=== PATIENT | male | born 1960 | race Caucasian/White ===

== ENCOUNTER 2022-09-22 08:39 | Outpatient (REF) | payer OTHER, SELFPAY ==
--- NOTE | ~2022-09-22 | XR_ITS ---
EXAMINATION: XR FOOT, RIGHT CLINICAL INFORMATION: Right foot pain for 2 weeks, has improved. Diabetic, second and third and fourth toe were painful and purple. Patient unable to recall injury. COMPARISON: None available. TECHNIQUE: AP, 2 lateral, and oblique views of the right foot. FINDINGS: Dorsal and plantar calcaneal spur formation. Hypertrophic change at the dorsal aspect of the midfoot. The bones appear demineralized. Mild spurring along the medial aspect of the partially imaged distal tibia. Moderate degenerative changes first metatarsophalangeal joint with joint space narrowing and hypertrophic change. XR/XR foot RT min 3V IMPRESSION: Moderate degenerative changes as detailed above. Recommend follow-up imaging in 10-14 days if fracture is suspected.
== END 2022-09-22 08:40 | disposition home or self-care (01) ==
LOC: HO.HHCX 08:39
PROVIDERS: Visit Provider Student in an Organized Health Care Education/Training Program
DX: M79.671 Pain in right foot (principal)
CPT/HCPCS: 73630

== ENCOUNTER 2022-09-22 10:15 | Outpatient (REF) | payer OTHER, SELFPAY ==
--- NOTE | ~2022-09-22 | US_ITS ---
EXAMINATION: US LOWER EXTREMITY VENOUS (REFLUX EXAM), RIGHT CLINICAL INDICATION: Varicose veins, pain in the right foot COMPARISON: None. TECHNIQUE: Color flow triplex imaging and compression Doppler was performed to evaluate both the deep and the superficial systems bilaterally. To evaluate the superficial system, the examination was performed in the upright position. Color-flow Doppler ultrasound and compression ultrasound were utilized. In addition, maneuvers were utilized to demonstrate reflux. FINDINGS: 1. DEEP VENOUS ULTRASOUND OF THE RIGHT LOWER EXTREMITY: Common Femoral Vein: Compressible, normal respiratory variation and augmented flow. Femoral Vein: Compressible, normal color flow and augmentation. Popliteal Vein: Compressible, normal augmentation. Deep Reflux: There is no evidence of reflux in the deep system in either the common femoral vein or the popliteal vein. There is no evidence of a Valentine's cyst. 2. SUPERFICIAL ULTRASOUND WITH DOPPLER OF RIGHT LOWER EXTREMITY: GREAT SAPHENOUS VEIN: Saphenofemoral Junction: 0.8 cm; Reflux: 0 ms Proximal Thigh: 0.7 cm; Reflux: 0 ms Mid Thigh: 0.5 cm; Reflux: 0 ms Above Knee: 0.6 cm; Reflux: 0 ms At Knee: 0.5 cm; Reflux: 0 ms Below Knee: 0.5 cm; Reflux: 0 ms Mid Calf: 0.3 cm; Reflux: 0 ms Ankle: 0.3 cm; Reflux: 0 ms DUPLICATED MEDIAL GREAT SAPHENOUS VEIN: Diameter: None imaged Reflux: NA DUPLICATED LATERAL GREAT SAPHENOUS VEIN: Diameter: None imaged Reflux: NA SMALL SAPHENOUS VEIN: Proximal: 0.3 cm; Reflux: 0 ms Distal: 0.2 cm; Reflux: 0 ms VEIN OF GIACOMINI: Size: NA Reflux: NA PERFORATORS: Location: Multiple calf perforators Size: 0.3 cm Reflux: NA VARICOSITIES: Location: Lateral mid calf Size: 0.3 cm Reflux: 2096ms US/US venous duplex LE RT IMPRESSION: Right: No venous reflux in the superficial or deep venous systems. There is venous reflux within the lateral mid calf varicose vein.
== END 2022-09-22 10:16 | disposition home or self-care (01) ==
LOC: HO.US 10:15
PROVIDERS: Visit Provider Student in an Organized Health Care Education/Training Program
DX: M79.671 Pain in right foot (principal)
CPT/HCPCS: 93971

== ENCOUNTER 2023-08-27 12:10 | Outpatient (REF) | payer OTHER, SELFPAY ==
[2023-08-27 14:16] LABS: Estimated Average Glucose 100 mg/dL; Hemoglobin A1c % 5.1 % (<6.0)
[2023-08-27 14:26] LABS: Alanine Aminotransferase 74 U/L (0-40); Alkaline Phosphatase 172 U/L (39-117); Anion Gap 20 (12-20); Aspartate Amino Transferase 117 U/L (5-37); Bilirubin Direct 0.3 mg/dL (0.0-0.5); Bilirubin Total 0.7 mg/dL (0.0-1.0); Blood Urea Nitrogen 4 mg/dL (9-16); Calcium 9.1 mg/dL (8.4-10.2); Carbon Dioxide 23 mmol/L (22-29); Chloride 91 mmol/L (96-108); Cholesterol 158 mg/dL (<200); Estimated Glomerular Filt Rate > 60; Glucose Random 134 mg/dL (60-115); HDL Cholesterol 71 mg/dL (>40); LDL Cholesterol Calculated 70 mg/dL (<100); Potassium 3.6 mmol/L (3.3-5.1); Sodium 130 mmol/L (135-145); Total Protein 7.2 g/dL (6.5-8.0); Triglycerides 88 mg/dL (<150)
[2023-08-27 14:35] LABS: Creatinine Urine 53.62 mg/dL; Microalbum/Creatinine Ratio Ur 736.6 ug/mg cr (<30)
== END 2023-08-27 12:11 | disposition home or self-care (01) ==
LOC: HO.CHCLDS 12:10
PROVIDERS: Visit Provider Student in an Organized Health Care Education/Training Program
DX: E11.9 Type 2 diabetes mellitus without complications (principal); E78.00 Pure hypercholesterolemia, unspecified; I10 Essential (primary) hypertension
CPT/HCPCS: 36415; 80048; 80061; 80076; 82043; 82570; 83036

== ENCOUNTER 2023-08-27 13:24 | Outpatient (REF) | payer OTHER, SELFPAY ==
--- NOTE | ~2023-08-27 | XR_ITS ---
EXAMINATION: XR KNEE RIGHT XR KNEE LEFT CLINICAL INFORMATION: Pain after fall one week ago COMPARISON: None TECHNIQUE: Right knee, 2 views Left knee, 2 views FINDINGS: Right knee: Tricompartmental osteophyte formation and mild narrowing of medial tibiofemoral joint space. No fracture, subluxation or joint effusion. A 0.8 cm long focus of calcification seen near site of femoral attachment of the medial collateral ligament probably represents calcium hydroxyapatite deposition. No acute fracture is seen in this region. There appears to be soft tissue swelling in the prepatellar region. Mild scattered atherosclerotic calcification of peripheral vessels. Left knee: Bones have normal alignment. No fracture, subluxation or joint effusion. No arthritic deformity. The calcification in the region of the proximal medial collateral ligament of 2 cm length likely represent calcium hydroxyapatite deposition. There is mild scattered atherosclerotic calcification of peripheral vessels. XR/XR knee LT 2V IMPRESSION: * No acute osseous injury at either knee. * There is asymmetric soft tissue swelling in the prepatellar region of the right knee. Correlate for any posttraumatic bruising after the recent fall. No patellar fracture. * Mild to moderate tricompartmental osteoarthritis of the right knee. * Incidentally noted are foci of calcium deposition (likely calcium hydroxyapatite deposition) at each proximal medial collateral ligament.
--- NOTE | ~2023-08-27 | XR_ITS ---
EXAMINATION: XR KNEE RIGHT XR KNEE LEFT CLINICAL INFORMATION: Pain after fall one week ago COMPARISON: None TECHNIQUE: Right knee, 2 views Left knee, 2 views FINDINGS: Right knee: Tricompartmental osteophyte formation and mild narrowing of medial tibiofemoral joint space. No fracture, subluxation or joint effusion. A 0.8 cm long focus of calcification seen near site of femoral attachment of the medial collateral ligament probably represents calcium hydroxyapatite deposition. No acute fracture is seen in this region. There appears to be soft tissue swelling in the prepatellar region. Mild scattered atherosclerotic calcification of peripheral vessels. Left knee: Bones have normal alignment. No fracture, subluxation or joint effusion. No arthritic deformity. The calcification in the region of the proximal medial collateral ligament of 2 cm length likely represent calcium hydroxyapatite deposition. There is mild scattered atherosclerotic calcification of peripheral vessels. XR/XR knee RT 2V IMPRESSION: * No acute osseous injury at either knee. * There is asymmetric soft tissue swelling in the prepatellar region of the right knee. Correlate for any posttraumatic bruising after the recent fall. No patellar fracture. * Mild to moderate tricompartmental osteoarthritis of the right knee. * Incidentally noted are foci of calcium deposition (likely calcium hydroxyapatite deposition) at each proximal medial collateral ligament.
--- NOTE | ~2023-08-27 | XR_ITS ---
EXAMINATION: XR SHOULDER, RIGHT CLINICAL INFORMATION: Pain after fall one week ago COMPARISON: None available. TECHNIQUE: 3 views of of the right shoulder. FINDINGS: Bones appear to be diffusely osteopenic. No acute fracture or subluxation at the shoulder. Small osteophytes of the glenohumeral joint and subchondral cystic changes at the inferior aspect of the glenoid. There is mild osteoarthrosis of the acromioclavicular joint. The moderately displaced fracture of the mid third of the right clavicle is likely acute. There is no periosteal reaction. The visualized right lung is clear. No pneumothorax. There is atherosclerotic calcification of the visualized right carotid bulb. XR/XR shoulder RT min 2V IMPRESSION: * Acute, moderately displaced fracture of the mid third of the right clavicle. * Mild osteoarthritis of acromioclavicular and glenohumeral joints.
== END 2023-08-27 13:25 | disposition home or self-care (01) ==
LOC: HO.XRAY 13:24
PROVIDERS: PCP Student in an Organized Health Care Education/Training Program; Visit Provider Student in an Organized Health Care Education/Training Program
DX: M25.561 Pain in right knee (principal); M25.562 Pain in left knee; G89.29 Other chronic pain; S42.021A Displaced fracture of shaft of right clavicle, initial encounter for closed fracture
CPT/HCPCS: 73030; 73560

== ENCOUNTER 2023-08-28 16:29 | Inpatient (IN) | payer OTHER, SELFPAY ==
--- NOTE | ~2023-08-28 | CT_ITS ---
EXAMINATION: CT HEAD WITHOUT CONTRAST CT CERVICAL SPINE WITHOUT CONTRAST CLINICAL INFORMATION: Headache. Neck pain. Trauma. COMPARISON: None TECHNIQUE: Contiguous axial imaging was performed from the skull base to vertex without intravenous administration of contrast. Contiguous axial CT images of the cervical spine were obtained without contrast. Sagittal and coronal reformats were provided and reviewed. This CT examination was performed using dose optimization techniques as appropriate, variously including the following: *Automated exposure control *Adjustment of mA and/or kV according to patient size (this includes techniques or standardized protocols for targeted exams where dose is matched to indication/reason for exam; i.e. extremities or head) *Use of iterative reconstruction technique DLP: 1815 mGy-cm FINDINGS: HEAD: There is no evidence of acute intracranial hemorrhage or territorial infarction. No abnormal mass effect or midline shift is seen. [place] to white matter differentiation is well preserved. No extra-axial fluid collections are identified. Mild prominence of the ventricles and sulci, consistent mild, diffuse atrophy. Hypoattenuation the periventricular white matter, consistent with mild chronic microvascular ischemic disease. The osseous structures and soft tissues are normal. The mastoid air cells and visualized portions of the paranasal sinuses are well aerated. CERVICAL SPINE: Mild reversal the normal cervical lordosis which may be positional or related muscle spasm. No acute fracture or subluxation. Minimal grade 1 retrolisthesis of C5 on C6. No loss of vertebral body height. Loss of intervertebral disc height with endplate osteophytes at C4-T1. Multilevel bilateral facet arthropathy. No lytic or blastic osseous lesion. Unremarkable prevertebral soft tissues. No abnormal soft tissue mass or fluid collection. Thyroid within normal limits. Visualized lung apices are clear. Moderate to severe bilateral neural foraminal stenosis at C5-C6 with additional mild multilevel bilateral neural foraminal stenosis. CT/CT cervical spine wo IV con IMPRESSION: HEAD: No acute intracranial hemorrhage or mass effect. Mild diffuse atrophy and chronic microvascular ischemic disease. CERVICAL SPINE: No acute fracture or subluxation. Multilevel degenerative disc disease and bilateral facet arthropathy with bilateral neural foraminal stenosis, most prominent at C5-C6.
--- NOTE | ~2023-08-28 | CT_ITS ---
EXAMINATION: CT CHEST WITHOUT CONTRAST CLINICAL INFORMATION: Right-sided rib and clavicular trauma. Fall. COMPARISON: Rib radiographs dated 12/05/2015. TECHNIQUE: Multidetector volumetric CT imaging of the chest was done. Axial MIP volume rendering provided. Sagittal and coronal reformatted images were obtained. This CT examination was performed using dose optimization techniques as appropriate, variously including the following: *Automated exposure control *Adjustment of mA and/or kV according to patient size (this includes techniques or standardized protocols for targeted exams where dose is matched to indication/reason for exam; i.e. extremities or head) *Use of iterative reconstruction technique DLP: 1815 mGy-cm FINDINGS: FORKLIFT PICKER: Unremarkable. LUNGS: There is a 0.2 cm nodule within the right upper lobe (axial image [id number]). No additional pulmonary nodule, mass, or airspace consolidation. The central airways are patent. MEDIASTINUM: No cardiomegaly. No pericardial effusion. No thoracic aortic dilatation. No mediastinal or hilar lymphadenopathy. CORONARY ARTERY CALCIFICATION: Present. PLEURA: There is no pleural effusion. No pleural mass or thickening. AXILLA: No lymphadenopathy. UPPER ABDOMEN: Hypoattenuation of the hepatic parenchyma, consistent with steatosis. Partially visualized right adrenal nodule measuring 2.1 x 1.7 x 1.4 cm and approximately -41 Hounsfield units. The visualized upper abdominal structures are otherwise unremarkable. OSSEOUS STRUCTURES: Multiple, healed right-sided rib fractures. Chronic, unfused mid right clavicular fracture. Age indeterminant compression deformity at the superior endplate of T11. No concerning lytic or blastic osseous lesion. CT/CT chest wo IV con IMPRESSION: 1. Age indeterminant compression deformity superior endplate of T11. Multiple, healed right-sided rib fractures. Chronic, unfused mid right clavicular fracture. 2. Right upper lobe 0.2 cm pulmonary nodule. According to the UPDATED 2017 Fleischner Society recommendations, the advised follow-up imaging for nodules <6mm in the upper lobes is not necessarily required in low-risk patients. In high-risk patients with a nodule in the upper lobe and/or demonstrating suspicious morphology, an optional CT follow-up at 12 months may be obtained. If stable at 12 months, no further follow-up is recommended. 3. Hepatic steatosis. 4. Partially visualized right adrenal nodule measuring up to 2.1 cm. 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 Fleischner guidelines were followed.
--- NOTE | 2023-08-28 17:19 | ED_ITS ---
HPI - General Adult General Chief complaint: Recheck/Abnormal Lab/Rx Stated complaint: abnormal labs Time Seen by Provider: 08/28/23 20:15 Source: patient and family Mode of arrival: ambulatory Limitations: no limitations History of Present Illness ED Provider: KELLI LARRY narrative: 62 yo male with PMH of HTN, ETOH abuse drinks 30+ beers a day last drink was yesterday at 9pm he has been more weak and falling denies LOC has hit his head and R eye area. He is not on thinners. He broke his collarbone recently and area is contused about 2 weeks ago. He had labs yesterday showing Na 130 - repeat labs today down to 124 referred to ED. Patient is shaky on arrival to the ED and spouse notes he has been drinking a lot and falling a lot. He is upset he is here and that his labs are abnormal. xray from yesterday shows acute moderately displaced fracture of mid clavicle on R side complaint: falls, ETOH abuse Onset (ago): week(s) (few) Location: head, face and chest Radiation: non-radiation Severity: moderate Quality: aching, dull and constant Pain Consistency: intermittent Relieving factors: rest Exacerbating factors: movement and rest Associated symptoms: loss of appetite, malaise and weakness Treatments prior to arrival: none Related Data Allergies Allergy/AdvReac Type Severity Reaction Status Date / Time No Known Allergies Allergy Verified 08/28/23 17:22 [No Known Allergies*] Review of Systems 2 Review of Systems: Constitutional : No Fever, No Chills, No Fatigue ENT/Mouth : No sore throat, No Rhinorrhea Eyes: No Eye Pain, No Swelling, No Redness Cardiovascular : No Chest Pain, No SOB, No Dyspnea on Exertion Respiratory : No Cough, No Sputum Gastrointestinal : pos Nausea, No Vomiting, No Diarrhea, No abdominal Pain Genitourinary : No Dysuria, No Urinary Frequency, No Hematuria, Musculoskeletal : No joint pain, No Myalgias, No Joint Swelling, pos ext pain Skin : No Skin Lesions, No rash Neuro : pos Weakness, No Numbness, pos Dizziness, positive Headache, pos falls Psych : pos Anxiety/Panic, No Depression All other systems reviewed and are negative [facility] Past Medical History Attestation statement: The following information was validated with the patient. Source: old records reviewed Medical History (Updated 08/28/23 @ 20:59 by Lelo Zavaleta DO) Alcohol use disorder HTN (hypertension) Social History Social History (Updated 08/28/23 @ 20:52 by Lelo Zavaleta DO) Alcohol intake: current Alcohol intake frequency: 3 or more drinks per day Patient Tobacco Use Status: Current everyday Tobacco user Use of substances other than those prescribed or required for medical reasons: No Advance Directives: No Advance Directives Information Provided: No Do you have a plan to hurt others: No Plan Physical Exam ED Vital Signs: Vital Signs - 24 hr 08/28/23 17:20 08/28/23 21:33 08/28/23 21:59 Temperature 97.9 F 98.4 F 98.2 F Pulse Rate 101 H 85 94 Respiratory Rate 18 20 16 Blood Pressure 203/106 H 185/92 H 173/98 H Pulse Oximetry 97 96 95 Oxygen Delivery Method Room Air Room Air Room Air BMI result Body Mass Index 31.4 Appearance: Alert. Oriented X3. anxious very unsteady gait moderate acute distress. Eyes: Pupils equal, round and reactive to light. ENT: Pharynx tongue fasciculations noted, old contusion R periorbital area Neck: Normal inspection. Neck supple. CVS: tachycardic heart rate and rhythm. Pulses normal. Chest: contusion noted over R clavicle Respiratory: No respiratory distress. Breath sounds diminished throughout. persistent dry cough Abdomen: Soft and nontender. Skin: Skin warm and dry. Normal skin color. Normal skin turgor. Extremities: No lower extremity edema. No calf ttp Neuro: Oriented X 3. No motor deficit. No sensory deficit. very unsteady gait, tremors in hands Course Course Course Narrative: This is an RME performed by Shaji Gordon CNP: Additional HPI, ROS, PE not included below will be deferred to primary provider. Patient is a 62-year-old male who presents to the emergency department for evaluation, he reports having routine labs from PCP, was called and told to come the the ED due to abnormal creatinine through the roof . He's been having multiple falls unknown etiology, and has not been able to return to work due to this, reports weakness to bilateral LE's. - on review, had outpatient chemistries with sodium of 130, chloride 91, creatinine 0.74 mildly elevated LFTs. He is hypertensive in triage 203/106, not compliant with his antihypertensives. Plan: Repeat labs, urinalysis Medications Administered Discontinued Medications Generic Name Dose Route Start Last Admin Trade Name Hillary PRN Reason Stop Dose Admin Thiamine HCl 200 mg/ Sodium 102 mls @ 204 mls/hr 08/28/23 20:15 08/28/23 21:10 Chloride IV 08/28/23 20:44 Infused ONCE ONE Infusion Magnesium Sulfate 2 gm in 50 mls @ 25 mls/hr 08/28/23 20:15 08/28/23 21:15 Magnesium Sulfate/H2o IV 08/28/23 22:14 25 mls/hr ONCE ONE Administration Lorazepam 2 mg 08/28/23 20:15 08/28/23 20:35 Lorazepam 2 Mg/Ml Vial IVPUSH 08/28/23 20:16 2 mg ONCE ONE Administration Phenobarbital Sodium 339 mg 08/28/23 21:00 08/28/23 20:43 Phenobarbital Sodium 130 Mg/Ml Im Once IM 08/28/23 21:01 339 mg ONCE ONE Administration Procedures Orthopedic Splinting/Casting Injury #1: Side: right Upper Extremity Injury Location: shoulder Upper Extremity Immobilizer: sling/shoulder immobilizer Medical Decision Making Medical Decision Making [facility] Narrative: 62 yo male with PMH of HTN, ETOH abuse here with c/o low Na on routine labs 124 - he has elevated LFTs, low mag, recent falls with clavicle fracture - drinking 3 12 packs of beer a day he presents in ETOH withdrawal and unsteady gait, he has clinical signs of volume overload as well 1-2+ pitting edema, IV thiamine, IV magnesium, IV ativan ordered and IM phenobarb ordered for ETOH withdrawal - CT scan of head, cspine, chest for trauma. Planned admit. Differential Diagnosis Differential Diagnoses: The differential diagnosis associated with the presentation includes beer potomania, head and neck trauma rib fracture lyte abnormality alcohol withdrawal Admission/Observation Consideration of admission/observation: Escalation of care including admission/observation considered admit for lytes, ETOH withdrawal Consult Healthcare Provider Management of the patient was discussed with: Hospitalist (will admit) Lab Data [facility] Lab Attestation statement: I reviewed the patient's lab results. 08/28/23 17:38 08/28/23 17:38 Labs: Lab Results 08/28/23 08/28/23 Range/Units 17:38 18:08 WBC 7.8 (4.8-10.8) X10*3/uL RBC 3.21 L (4.60-5.80) X10*6/uL Hgb 11.4 L (14.0-18.0) g/dl Hct 30.4 L (42.0-52.0) % MCV 94.7 (80.0-98.0) fL MCH 35.5 H (27.0-33.0) pg MCHC 37.5 H (31.0-36.0) g/dl RDW 14.1 (11.0-16.0) % Plt Count 187 (160-400) X10*3/uL MPV 9.2 L (9.4-12.4) fL Immature Gran % (Auto) 0.5 H (0.0-0.4) % Neut % (Auto) 82.5 H (45-73) % Lymph % (Auto) 4.5 L (20-40) % Gordon % (Auto) 11.1 H (2-11) % Eos % (Auto) 0.5 (0-4) % Baso % (Auto) 0.9 (0-2) % Lymph # (Auto) 0.4 L (1.2-4.9) X10*3/uL Gordon # (Auto) 0.9 (0.1-1.2) X10*3/uL Eos # (Auto) 0.0 (0.0-0.4) X10*3/uL Baso # (Auto) 0.1 (0.0-0.2) X10*3/uL Abs Immat Gran (auto) 0.04 H (0.00-0.03) X10*3/uL Absolute Neuts (auto) 6.4 (2.0-8.3) x10*3/uL Absolute Nucleated RBC 0.000 (0.0-0.012) X10*3/uL Nucleated RBC % (auto) 0.0 (0.0-0.2) /100WBC PT 14.0 H (11.1-13.3) SEC INR 1.2 H (0.9-1.1) Sodium 124 L (135-145) mmol/L Potassium 3.8 (3.3-5.1) mmol/L Chloride 86 L (96-108) mmol/L Carbon Dioxide 23 (22-29) mmol/L Anion Gap 19 (12-20) BUN 5 L (9-16) mg/dL Creatinine 0.80 (0.5-1.4) mg/dL Estim Creat Clear Calc 109.7 Estimated GFR > 60 Random Glucose 111 (60-115) mg/dL Osmolality 268 L (281-305) mosm/kg Calcium 9.5 (8.4-10.2) mg/dL Magnesium 1.5 L (1.6-2.6) mg/dL Total Bilirubin 1.2 H (0.0-1.0) mg/dL AST 134 H (5-37) U/L ALT 80 H (0-40) U/L Alkaline Phosphatase 181 H (39-117) U/L Total Protein 7.8 (6.5-8.0) g/dL Albumin 4.4 (3.5-5.0) g/dL Urine Color Yellow Urine Appearance Clear Urine pH 6.0 (5.0-9.0) Ur Specific [place] <= 1.005 (1.005-1.025) Urine Protein 30 (1+) H (Neg-Trace) mg/dL Urine Glucose (UA) Negative (Negative) mg/dL Urine Ketones Trace (Negative) mg/dL Urine Blood Negative (Negative) Urine Nitrite Negative (Negative) Ur Leukocyte Esterase Negative (Negative) Urine RBC 0-2 (0-2) /HPF Urine WBC 0-5 (0-5) /HPF Ur Squamous Epith Cells 0-2 (0-2) /HPF Urine Bacteria None Seen (None Seen) Hyaline Casts 0-2 (0-2) /LPF Urine Osmolality 143 L (373-1093) mosm/kg Ur Random Sodium < 20.0 mmol/L Urine Opiates Screen Not Detected (Not Detect) Ur Buprenorphine Scrn Not Detected (Not Detect) ng/mL Ur Oxycodone Screen Not Detected (Not Detect) ng/mL Urine Methadone Screen Not Detected (Not Detect) ng/mL Urine Fentanyl Screen Not Detected (Not Detect) Ur Barbiturates Screen Not Detected (Not Detect) Ur Phencyclidine Scrn Not Detected (Not Detect) Ur Amphetamines Screen Not Detected (Not Detect) U Benzodiazepines Scrn Not Detected (Not Detect) Urine Cocaine Screen Not Detected (Not Detect) U Marijuana (THC) Screen Not Detected (Not Detect) Ethyl Alcohol < 10 mg/dL Independent Interpretation I performed an independent interpretation of an: EKG, Plain X-Ray and CT Scan (no new trauma) Interpretation: Rate: 98 Rhythm: NSR [place]: normal Normal P waves. Normal JAMES. Normal QRS complex. ST T wave : no [place], inverted t waves III, aVF, V1 qTC: 441 prior studies: no acute ischemia The study has been interpreted contemporaneously by me. . Radiology Impression Discussion of test interpretation with radiology: I have reviewed the radiologist's reading. Independent Historian Clinical information obtained from an independent historian. History obtained from or confirmed by: Spouse External Record Review External record reviewed: Prior outpatient labs and Prior outpatient radiology Critical Care Time Critical Care Time Critical Care Time: Yes Total Critical Care Time: 60 Attestation: IV ativan with improvement, IV magnesium, phenobarb protocol, admission I attest to this time spent taking care of the patient Discharge Plan Discharge Clinical Impression: Acute hyponatremia, Hypomagnesemia, Elevated liver enzymes Alcohol withdrawal Qualifiers: Complication of substance-induced condition: with unspecified complication Q ualified Code(s): F10.939 - Alcohol use, unspecified with withdrawal, unspecified Patient Disposition: Admitted As Inpatient Print Language: Finnish
[2023-08-28 17:20] VITALS: BP 203/106; PULSE 101; RESP 18; TEMP 36.6; O2SAT 97; BMI 31.4
--- NOTE | 2023-08-28 17:23 | ECG_ITS ---
Test Reason : MULTIPLE FALLS Blood Pressure : / mmHG Vent. Rate : 098 BPM Atrial Rate : 098 BPM P-R Int : 148 ms QRS Dur : 090 ms QT Int : 346 ms P-R-T Axes : 029 031 011 degrees QTc Int : 441 ms Sinus rhythm with occasional Premature ventricular complexes Nonspecific ST abnormality Abnormal ECG When compared with ECG of 17-SEP-2015 12:39, Premature ventricular complexes are now Present Referred By: Rajni Gordon Electronically Signed By:MIMI BECKFORD MD
[2023-08-28 17:52] LABS: MANUAL DIFF FLAG NO
[2023-08-28 17:54] LABS: Appearance Urine Clear; Color Urine Yellow; Glucose Urine UA Negative (Negative); Leukocyte Esterase Urine Negative (Negative); Nitrite Urine Negative (Negative); Specific Gravity - Urine <= 1.005 (1.005-1.025); UMIC TRIGGER UACC YES; Urine Blood Negative (Negative); Urine Ketones Trace mg/dL (Negative); Urine Protein 30 (1+) mg/dL (Neg-Trace)
[2023-08-28 18:10] LABS: Basophils Absolute Auto 0.1 X10*3/uL (0.0-0.2); Basophils Percent Auto 0.9 % (0-2); Eosinophils Percent Auto 0.5 % (0-4); Hematocrit 30.4 % (42.0-52.0); Hemoglobin 11.4 g/dl (14.0-18.0); Imm Gran Abs Auto 0.04 X10*3/uL (0.00-0.03); Imm Gran Pct Auto 0.5 % (0.0-0.4); Lymphocytes Absolute Auto 0.4 X10*3/uL (1.2-4.9); Lymphocytes Percent Auto 4.5 % (20-40); Mean Corpuscular HGB Conc 37.5 g/dl (31.0-36.0); Mean Corpuscular Hemoglobin 35.5 pg (27.0-33.0); Mean Corpuscular Volume 94.7 fL (80.0-98.0); Mean Platelet Volume 9.2 fL (9.4-12.4); Monocytes Absolute Auto 0.9 X10*3/uL (0.1-1.2); Monocytes Percent Auto 11.1 % (2-11); Neutrophils Absolute Auto 6.4 x10*3/uL (2.0-8.3); Neutrophils Percent Auto 82.5 % (45-73); Platelet Count 187 X10*3/uL (160-400); Red Blood Count 3.21 X10*6/uL (4.60-5.80); Red Cell Distribution Width 14.1 % (11.0-16.0); White Blood Count 7.8 X10*3/uL (4.8-10.8)
[2023-08-28 18:13] LABS: Bacteria Urine None Seen (None Seen); Hyaline Casts Urine 0-2 /LPF (0-2); RBC Urine 0-2 /HPF (0-2); Squamous Epithelial Cell Urine 0-2 /HPF (0-2); WBC Urine 0-5 /HPF (0-5)
[2023-08-28 18:15] LABS: INTERNATIONAL NORM RATIO 1.2 (0.9-1.1)
[2023-08-28 18:27] LABS: Alanine Aminotransferase 80 U/L (0-40); Anion Gap 19 (12-20); Aspartate Amino Transferase 134 U/L (5-37); Bilirubin Total 1.2 mg/dL (0.0-1.0); Blood Urea Nitrogen 5 mg/dL (9-16); Calcium 9.5 mg/dL (8.4-10.2); Carbon Dioxide 23 mmol/L (22-29); Chloride 86 mmol/L (96-108); Creatinine Clr Calc Pharmacy 109.7; Estimated Glomerular Filt Rate > 60; Glucose Random 111 mg/dL (60-115); Magnesium 1.5 mg/dL (1.6-2.6); Potassium 3.8 mmol/L (3.3-5.1); Sodium 124 mmol/L (135-145)
[2023-08-28 18:28] LABS: Albumin Level 4.4 g/dL (3.5-5.0); Alkaline Phosphatase 181 U/L (39-117); Total Protein 7.8 g/dL (6.5-8.0)
[2023-08-28 18:33] LABS: Sodium Urine Random < 20.0 mmol/L
[2023-08-28 18:42] LABS: Osmolality, Serum 268 mosm/kg (281-305)
[2023-08-28 18:50] LABS: Osmolality Urine 143 mosm/kg (373-1093)
[2023-08-28] MEDS: LORazepam 2 MG/ML VIAL IVPUSH (20:35)
[2023-08-28 20:36] LABS: Ethanol < 10 mg/dL
[2023-08-28] MEDS: Thiamine HCL 200 MG in 0.9 % Sodium Chloride 100 ML 204 MG IV (20:40)
[2023-08-28] MEDS: PHENobarbitaL sodium 130 MG/ML IM ONCE 339 MG IM (20:43)
--- NOTE | 2023-08-28 20:50 | PC.NURSE ---
Pt medicated per apr. Pt requested and given blankets. Provider notified regarding pts b/p. Plan of care ongoing.
[2023-08-28 21:08] LABS: Amphetamine Screen Urine Not Detected (Not Detect); Barbiturates, Urine Not Detected (Not Detect); Benzodiazepines Screen Urine Not Detected (Not Detect); Buprenorphine Scr Not Detected (Not Detect); Cannabinoid Screen Urine Not Detected (Not Detect); Cocaine Screen Urine Not Detected (Not Detect); Fentanyl, urine Not Detected (Not Detect); Methadone Screen, Urine Not Detected (Not Detect); Opiate Screen Urine Not Detected (Not Detect); Oxycodone Screen Urine Not Detected (Not Detect); Phencyclidine Screen Urine Not Detected (Not Detect)
[2023-08-28] MEDS: Magnesium Sulfate/H2O 2 GM/50 ML PIGGYBACK IV (21:15)
--- NOTE | 2023-08-28 21:22 | PC.NURSE ---
Pt back from CT. Pt ca&ox4, no signs of distress. Pt medicated per apr. Provider iris notified of pts b/p . Pts family @ bedside. Plan of care ongoing.
[2023-08-28 21:33] VITALS: BP 185/92; PULSE 85; RESP 20; TEMP 36.9; O2SAT 96
[2023-08-28 21:59] VITALS: BP 173/98; PULSE 94; RESP 16; TEMP 36.8; O2SAT 95
--- NOTE | 2023-08-28 22:03 | MHC.EDTECH ---
Patient was incontinent of urine ,care given and bedding change ,Patient was change into hospital attire ,[place] Catheters apply ,Patient groin is red and excoriated ,RN Jeanette aware ,Patient belonings list done ,Patient took all Patient home .Sling apply to Patient right Shoulder ,Patient is resting quietly ,call tucker within Pt reach .
[2023-08-28 22:18] VITALS: BP 152/95
[2023-08-28] MEDS: amLODIPine Besylate 10 MG TABLET PO (22:18)
--- NOTE | 2023-08-28 22:18 | P.HPHOSP_ITS ---
History of Present Illness Date of Service: 08/28/23 Chief Complaint: Alcohol withdrawal This is a 62-year-old male with pertinent history of hypertension, alcohol use disorder who presents to the emergency department of alcohol withdrawal. Patient drinks more than 30 beers a day and his last drink was 21:00 yesterday. Patient has been feeling anxious, tremulous and weak since yesterday. No history of alcohol withdrawal seizures. Patient is also states that he fell while ago and broke his collarbone. Patient's who was present earlier told the ER provider that he has been drinking a lot and falling. He denies fever, chills, chest discomfort, palpitations, shortness of breath, abdominal pain, changes in urinary bowel habits. In the emergency department, patient was initiated on phenobarb protocol. Sodium was found to be 124 Review of Systems 2 Constitutional: Constitutional: Reports malaise, Reports poor appetite and Reports weakness Cardiovascular: Cardiovascular: Reports no additional cardiovascular complaints Respiratory: Respiratory: Reports no additional respiratory complaints Gastrointestinal: Gastrointestinal: Reports no additional gastrointestinal complaints Genitourinary: Genitourinary: Reports no additional male genitourinary complaints Neurologic: Reports weakness [facility] Medical History Alcohol use disorder HTN (hypertension) Pertinent family history: No family history of early CAD Social History Alcohol intake: current Alcohol intake frequency: 3 or more drinks per day Patient Tobacco Use Status: Current everyday Tobacco user Use of substances other than those prescribed or required for medical reasons: No Advance Directives: No Advance Directives Information Provided: No Do you have a plan to hurt others: No Plan Meds Allergies Allergy/AdvReac Type Severity Reaction Status Date / Time No Known Allergies Allergy Verified 08/28/23 17:22 [No Known Allergies*] Active Medications: Current Medications Pharmacy Consult (Consult Rx Etoh Phenob Im/Po) 1 each MISCELLANE ONCE PRN; Protocol PRN Reason: Consult order Phenobarbital (Phenobarbital 15 Mg Tablet) 45 mg PO BID [facility] Stop: 08/31/23 21:01 Phenobarbital (Phenobarbital 15 Mg Tablet) 15 mg PO BID [facility] Stop: 09/02/23 21:01 Phenobarbital (Phenobarbital 15 Mg Tablet) 15 mg PO DAILY [facility] Stop: 09/04/23 09:01 Phenobarbital Sodium (Phenobarbital Sodium 130 Mg/Ml Vial Im Q3hx2) 255 mg IM Q3H TIA Stop: 08/29/23 03:01 Physical Exam 2 Vital Signs and Narrative: Vital Signs: Last Vital Signs Temp 98.2 F 08/28/23 21:59 Pulse 94 08/28/23 21:59 Resp 16 08/28/23 21:59 BP 173/98 H 08/28/23 21:59 Pulse Ox 95 08/28/23 21:59 O2 Del Method Room Air 08/28/23 21:59 BMI result Body Mass Index 31.4 Middle-aged male lying in bed in no distress Neck supple, no JVD Regular rate and rhythm, S1-S2 heard Regular breath sounds bilaterally, no wheezing or crackles appreciated Abdomen soft nontender, no guarding, no rigidity Patient is awake, alert and oriented to self, place, time and person ; no focal motor deficit, and tremors present Psych: Anxious No pedal edema Results Labs 08/28/23 17:38 08/28/23 17:38 Labs: Laboratory Results - last 24 hr 08/28/23 08/28/23 17:38 18:08 MCV 94.7 MCH 35.5 H MCHC 37.5 H RDW 14.1 Plt Count 187 MPV 9.2 L Immature Gran % (Auto) 0.5 H Neut % (Auto) 82.5 H Lymph % (Auto) 4.5 L [place] % (Auto) 11.1 H Eos % (Auto) 0.5 Baso % (Auto) 0.9 Lymph # (Auto) 0.4 L [place] # (Auto) 0.9 Eos # (Auto) 0.0 Baso # (Auto) 0.1 Abs Immat Gran (auto) 0.04 H Absolute Neuts (auto) 6.4 Absolute Nucleated RBC 0.000 Nucleated RBC % (auto) 0.0 PT 14.0 H INR 1.2 H Anion Gap 19 Estim Creat Clear Calc 109.7 Estimated GFR > 60 Random Glucose 111 Osmolality 268 L Calcium 9.5 Magnesium 1.5 L Total Bilirubin 1.2 H AST 134 H ALT 80 H Alkaline Phosphatase 181 H Total Protein 7.8 Albumin 4.4 Urine Color Yellow Urine Appearance Clear Urine pH 6.0 Ur Specific [place] <= 1.005 Urine Protein 30 (1+) H Urine Glucose (UA) Negative Urine Ketones Trace Urine Blood Negative Urine Nitrite Negative Ur Leukocyte Esterase Negative Urine RBC 0-2 Urine WBC 0-5 Ur Squamous Epith Cells 0-2 Urine Bacteria None Seen Hyaline Casts 0-2 Urine Osmolality 143 L Ur Random Sodium < 20.0 Urine Opiates Screen Not Detected Ur Buprenorphine Scrn Not Detected Ur Oxycodone Screen Not Detected Urine Methadone Screen Not Detected Urine Fentanyl Screen Not Detected Ur Barbiturates Screen Not Detected Ur Phencyclidine Scrn Not Detected Ur Amphetamines Screen Not Detected U Benzodiazepines Scrn Not Detected Urine Cocaine Screen Not Detected U Marijuana (THC) Screen Not Detected Ethyl Alcohol < 10 Imaging Radiologist's Impressions: Impressions Cervical Spine CT 08/28/23 21:20 IMPRESSION: HEAD: No acute intracranial hemorrhage or mass effect. Mild diffuse atrophy and chronic microvascular ischemic disease. CERVICAL SPINE: No acute fracture or subluxation. Multilevel degenerative disc disease and bilateral facet arthropathy with bilateral neural foraminal stenosis, most prominent at C5-C6. Chest CT 08/28/23 21:20 IMPRESSION: 1. Age indeterminant compression deformity superior endplate of T11. Multiple, healed right-sided rib fractures. Chronic, unfused mid right clavicular fracture. 2. Right upper lobe 0.2 cm pulmonary nodule. According to the UPDATED 2017 Fleischner Society recommendations, the advised follow-up imaging for nodules <6mm in the upper lobes is not necessarily required in low-risk patients. In high-risk patients with a nodule in the upper lobe and/or demonstrating suspicious morphology, an optional CT follow-up at 12 months may be obtained. If stable at 12 months, no further follow-up is recommended. 3. Hepatic steatosis. 4. Partially visualized right adrenal nodule measuring up to 2.1 cm. 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 Fleischner guidelines were followed. Head CT 08/28/23 21:20 IMPRESSION: HEAD: No acute intracranial hemorrhage or mass effect. Mild diffuse atrophy and chronic microvascular ischemic disease. CERVICAL SPINE: No acute fracture or subluxation. Multilevel degenerative disc disease and bilateral facet arthropathy with bilateral neural foraminal stenosis, most prominent at C5-C6. Assessment and Plan (1) Acute hyponatremia: Status: Acute (2) Alcohol withdrawal: Qualifiers: Complication of substance-induced condition: with unspecified complication Qualified Code(s): F10.939 - Alcohol use, unspecified with withdrawal, unspecified Status: Acute Plan This is a 62-year-old male with pertinent history of hypertension, alcohol use disorder who presents to the emergency department of alcohol withdrawal. #. Alcohol withdrawal: Phenobarb protocol initiated in the ER. Initiating thiamine, folic acid and multivitamin. Consulting Addiction Team #. Acute hypotonic hyponatremia: Likely beer potomania. Increase solute intake. Continue to monitor #. Hypertensive urgency due to medication noncompliance: Resume home antihypertensives #. Hypomagnesemia due to alcoholism: Repleted #. Elevated liver enzymes due to alcohol use disorder: Outpatient follow-up Med rec pending DVT prophylaxis: Lovenox Full code Admit as inpatient and will require two night minimum hospital stay for treatment of alcohol withdrawal, monitoring of serum sodium and blood pressure (as above), which is not possible in a lesser acute setting. Quality Stroke Does the patient have a stroke diagnosis?: No VTE Prior VTE?: No VTE Risk Level:: Medical - moderate - high VTE Device Contraindication: Treatment Not Indicated VTE Drug Contraindication: N/A - Med Ordered
[2023-08-28] MEDS: Enoxaparin Sodium 40 MG/0.4 ML SYRINGE SUBCUT (22:38)
--- NOTE | 2023-08-28 22:41 | PC.NURSE ---
Pt medicated per mar. Plan of care ongoing
[2023-08-28 23:12] VITALS: BP 171/96; PULSE 89; RESP 20; TEMP 36.9; O2SAT 96
--- NOTE | 2023-08-28 23:13 | MHC.EDTECH ---
Patient sat up in bed and remove [place] catheter ,was incontinent of urine ,care given and bedding change ,Patient very confused RN aware .
--- NOTE | 2023-08-28 23:33 | MHC.EDTECH ---
Patient asked for some water ,Provider Meghann said Patient can have ice chips ,Pt tolerated well .
[2023-08-29] MEDS: PHENobarbitaL sodium 130 MG/ML VIAL IM Q3Hx2 255 MG IM ×2 (00:56→03:37)
[2023-08-29] MEDS: 0.9 % Sodium Chloride Flush 3 ML SYRINGE IVFLUSH ×2 (00:57→19:03)
[2023-08-29 01:00] VITALS: BP 168/85; PULSE 82; RESP 18; TEMP 36.1; O2SAT 95
[2023-08-29 01:03] VITALS: BMI 31.4
[2023-08-29 04:00] VITALS: BP 104/54; PULSE 93; RESP 16; TEMP 36.4; O2SAT 93
--- NOTE | 2023-08-29 04:51 | HO.SKINPHOTO ---
Location: Category: Stage: Length: Width: Depth: cm Location: Category: Stage: Length: Width: Depth: cm Location:groin Category: Stage: Length: Width: Depth: cm Location: Category: Stage: Length: Width: Depth: cm Location: Category: Stage: Length: Width: Depth: cm Location: Category: Stage: Length: Width: Depth: cm
--- NOTE | 2023-08-29 04:53 | HO.SKINPHOTO ---
Location: Category: Stage: Length: Width: Depth: cm Location: Category: Stage: Length: Width: Depth: cm Location: Category: Stage: Length: Width: Depth: cm Location: Category: Stage: Length: Width: Depth: cm Location: Category: Stage: Length: Width: Depth: cm Location:harvinder lower legs Category: Stage: Length: Width: Depth: cm
--- NOTE | 2023-08-29 05:08 | HO.SKINPHOTO ---
Location: Category: Stage: Length: Width: Depth: cm Location: Category: Stage: Length: Width: Depth: cm Location: Category: Stage: Length: Width: Depth: cm Location: Category: Stage: Length: Width: Depth: cm Location: Category: Stage: Length: Width: Depth: cm Location:rectal/butt Category: Stage: Length: Width: Depth: cm
[2023-08-29 07:43] VITALS: BP 153/74; PULSE 90; RESP 16; TEMP 36.5; O2SAT 93
--- NOTE | 2023-08-29 08:08 | HO.PM.IMPN ---
Subjective Subjective Date of Service: 08/29/23 Interval History: f/u on alcohol withdrawal, hyponateremia Is doing better, no tremors, no hallucinations Sodium is improving, presently 129 Physical Exam Vital Signs: Vital Signs: Last Vital Signs Temp 97.7 F 08/29/23 07:43 Pulse 90 08/29/23 07:43 Resp 16 08/29/23 07:43 BP 153/74 H 08/29/23 07:43 Pulse Ox 93 08/29/23 07:43 O2 Del Method Room Air 08/29/23 07:43 BMI result Body Mass Index 31.4 General: AO X 3, no acute distress Resp: CTA bilateral CVS: S1,S2,RRR GI: +BS, NT, no distention Skin: No rash Neuro: motor grossly intact Psych: appropriate affect Objective Data Active Medications Acetaminophen (Acetaminophen 325 Mg Tablet) 650 mg PO Q6H PRN PRN Reason: Pain, Mild (Pain Scale 1-3), fever or headache Calcium Carbonate (Calcium Carbonate 750 Mg Tab.Chew) 750 mg PO Q4H PRN PRN Reason: Heartburn Enoxaparin Sodium (Enoxaparin Sodium 40 Mg/0.4 Ml Syringe) 40 mg SUBCUT Q24H [facility] Last Admin: 08/28/23 22:38 Dose: 40 mg Documented By: LYLE Folic Acid (Folic Acid 1 Mg Tablet) 1 mg PO DAILY [facility] Magnesium Hydroxide (Milk Of Magnesia 30 Ml Oral.Susp) 30 ml PO DAILY PRN PRN Reason: Constipation Melatonin (Melatonin 3 Mg Tablet) 6 mg PO BEDTIME PRN PRN Reason: Insomnia Multivitamins/Vitamin C (Multivitamin Tablet) 1 tab PO DAILY [facility] Ondansetron HCl (Ondansetron Hcl 4 Mg/2 Ml Vial) 4 mg IVPUSH Q8H PRN PRN Reason: Nausea and Vomiting Pharmacy Consult (Consult Rx Etoh Phenob Im/Po) 1 each MISCELLANE ONCE PRN; Protocol PRN Reason: Consult order Phenobarbital (Phenobarbital 15 Mg Tablet) 45 mg PO BID [facility] Stop: 08/31/23 21:01 Phenobarbital (Phenobarbital 15 Mg Tablet) 15 mg PO BID [facility] Stop: 09/02/23 21:01 Phenobarbital (Phenobarbital 15 Mg Tablet) 15 mg PO DAILY [facility] Stop: 09/04/23 09:01 Sodium Chloride (0.9 % Sodium Chloride Flush 3 Ml Syringe) 3 ml IVFLUSH QSHIFT [facility] Last Admin: 08/29/23 00:57 Dose: 3 ml Documented By: ANTHONY Thiamine HCl (Thiamine Hcl 100 Mg Tablet) 100 mg PO DAILY [facility] Labs 08/29/23 08:32 08/29/23 08:32 Labs: Laboratory Results - last 24 hr 08/28/23 08/28/23 17:38 18:08 MCV 94.7 MCH 35.5 H MCHC 37.5 H RDW 14.1 Plt Count 187 MPV 9.2 L Immature Gran % (Auto) 0.5 H Neut % (Auto) 82.5 H Lymph % (Auto) 4.5 L [place] % (Auto) 11.1 H Eos % (Auto) 0.5 Baso % (Auto) 0.9 Lymph # (Auto) 0.4 L [place] # (Auto) 0.9 Eos # (Auto) 0.0 Baso # (Auto) 0.1 Abs Immat Gran (auto) 0.04 H Absolute Neuts (auto) 6.4 Absolute Nucleated RBC 0.000 Nucleated RBC % (auto) 0.0 PT 14.0 H INR 1.2 H Anion Gap 19 Estim Creat Clear Calc 109.7 Estimated GFR > 60 Random Glucose 111 Osmolality 268 L Calcium 9.5 Magnesium 1.5 L Total Bilirubin 1.2 H AST 134 H ALT 80 H Alkaline Phosphatase 181 H Total Protein 7.8 Albumin 4.4 Urine Color Yellow Urine Appearance Clear Urine pH 6.0 Ur Specific [place] <= 1.005 Urine Protein 30 (1+) H Urine Glucose (UA) Negative Urine Ketones Trace Urine Blood Negative Urine Nitrite Negative Ur Leukocyte Esterase Negative Urine RBC 0-2 Urine WBC 0-5 Ur Squamous Epith Cells 0-2 Urine Bacteria None Seen Hyaline Casts 0-2 Urine Osmolality 143 L Ur Random Sodium < 20.0 Urine Opiates Screen Not Detected Ur Buprenorphine Scrn Not Detected Ur Oxycodone Screen Not Detected Urine Methadone Screen Not Detected Urine Fentanyl Screen Not Detected Ur Barbiturates Screen Not Detected Ur Phencyclidine Scrn Not Detected Ur Amphetamines Screen Not Detected U Benzodiazepines Scrn Not Detected Urine Cocaine Screen Not Detected U Marijuana (THC) Screen Not Detected Ethyl Alcohol < 10 Assessment and Plan (1) Elevated liver enzymes: Status: Acute (2) Alcohol withdrawal: Status: Acute (3) Hypomagnesemia: Status: Acute (4) Acute hyponatremia: Status: Acute Plan 62-year-old male with pertinent history of hypertension, alcohol use disorder who presents to the emergency department of alcohol withdrawal. Alcohol withdrawal with very high risk for DTs -continue Phenobarb protocol initiated in the ER -thiamine, folic acid and multivitamin replacement -Addiction med consult Acute on chronic hypotonic hyponatremia: Likely beer potomania interestingly sodium went from 130 prior day to 124 -water restriction and follow level closely Hypertensive urgency due to medication noncompliance, BP is rossy. In the past has been on Norvasc, Lisinopril, HCTZ and metoprolol and Lasix, -restart Norvasc and adjust as needed Hypomagnesemia due to alcoholism: Repleted and correct, add oral supplement Elevated liver enzymes due to alcohol use disorder: Outpatient follow-up DVT prophylaxis: Lovenox Full code need for inpatient: management of active alcohol withdrawal, high risk for DTs, mangement of acute hyponatremia Quality Stroke Does the patient have a stroke diagnosis?: No VTE Prior VTE?: No VTE Risk Level:: Medical - moderate - high VTE Device Contraindication: Treatment Not Indicated VTE Drug Contraindication: N/A - Med Ordered
[2023-08-29 08:45] LABS: MANUAL DIFF FLAG NO
[2023-08-29 08:51] LABS: Basophils Absolute Auto 0.1 X10*3/uL (0.0-0.2); Basophils Percent Auto 0.9 % (0-2); Eosinophils Absolute Auto 0.1 X10*3/uL (0.0-0.4); Eosinophils Percent Auto 1.1 % (0-4); Hematocrit 32.1 % (42.0-52.0); Hemoglobin 11.5 g/dl (14.0-18.0); Imm Gran Abs Auto 0.03 X10*3/uL (0.00-0.03); Imm Gran Pct Auto 0.5 % (0.0-0.4); Lymphocytes Absolute Auto 0.4 X10*3/uL (1.2-4.9); Mean Corpuscular HGB Conc 35.8 g/dl (31.0-36.0); Mean Corpuscular Hemoglobin 34.6 pg (27.0-33.0); Mean Corpuscular Volume 96.7 fL (80.0-98.0); Mean Platelet Volume 9.2 fL (9.4-12.4); Monocytes Absolute Auto 0.7 X10*3/uL (0.1-1.2); Monocytes Percent Auto 12.9 % (2-11); Neutrophils Absolute Auto 4.2 x10*3/uL (2.0-8.3); Neutrophils Percent Auto 76.6 % (45-73); Platelet Count 169 X10*3/uL (160-400); Red Blood Count 3.32 X10*6/uL (4.60-5.80); Red Cell Distribution Width 14.3 % (11.0-16.0); White Blood Count 5.5 X10*3/uL (4.8-10.8)
--- NOTE | 2023-08-29 09:06 | PHA.MEDREC ---
Addendum entered by Wagner Jung 08/29/23 09:13: Patient states he last took his medications a couple days ago. Original Note: Pharmacy Consult ? Medication Reconciliation Pharmacy has completed the medication reconciliation. Spoke with patient to confirm medications. Was only able to verbalize one of them on his own (lisinopril), the others I had to say for him to confirm. He reports furosemide and clonidine are once daily instead of BID like rx says. All of his medications were last filled in May and before (except for clonidine 07/06). He stopped using diclofenac tablets because they did not help his pain. When I asked if he had any creams or ointments at home he said yes but he does not use them.
[2023-08-29 09:09] LABS: Anion Gap 16 (12-20); Blood Urea Nitrogen 6 mg/dL (9-16); Calcium 9.3 mg/dL (8.4-10.2); Carbon Dioxide 26 mmol/L (22-29); Chloride 91 mmol/L (96-108); Creatinine Clr Calc Pharmacy 118.5; Estimated Glomerular Filt Rate > 60; Glucose Random 122 mg/dL (60-115); Potassium 3.6 mmol/L (3.3-5.1); Sodium 129 mmol/L (135-145)
[2023-08-29 09:19] LABS: Estimated Average Glucose 100 mg/dL; Hemoglobin A1c % 5.1 % (<6.0)
[2023-08-29 09:51] VITALS: BP 144/72; PULSE 106; RESP 18; TEMP 36.7; O2SAT 97
[2023-08-29] MEDS: Thiamine HCL 100 MG TABLET PO (09:55)
[2023-08-29] MEDS: Multivitamin TABLET 1 TAB PO (09:55)
[2023-08-29] MEDS: Folic Acid 1 MG TABLET PO (09:55)
[2023-08-29] MEDS: amLODIPine Besylate 5 MG TABLET PO (09:55)
[2023-08-29] MEDS: Magnesium Oxide 400 MG TABLET PO ×2 (09:55→18:04)
--- NOTE | 2023-08-29 15:01 | MHC.CM.PN ---
PT REPORTS HE LIVES WITH HIS AND IS INDEPENDENT WITH CARE HE HAS NO SERVICES AND A CANE AND A WALKER FOR DME PT DECLINES TO COMPLETE A HCP PCP: AYANA BILL PT REPORTS HE WOULD LIKE TO DC TODAY DCP: HOME WITH NO SERVICES VIA PRIVATE TRANSPORT
[2023-08-29 15:32] VITALS: BP 150/82; PULSE 85; RESP 16; TEMP 36.5; O2SAT 97
--- NOTE | 2023-08-29 16:28 | HO.ADDICTCON ---
History of Present Illness Date of Service: 08/28/20 Chief Complaint: Alcohol Use Reason for Consult: AUD Sources of Information: patient interviewed and chart reviewed HPI Narrative: Patient is a 62 year old male who presented to ED from home due to frequent falls in the context of alcohol use. Admitted with hyponatremia and alcohol withdrawal. Seen by this check writer salesperson in room 362. Patient awake, alert, however minimally engaged in interview. He reports that he has been drinking daily for the last 14 years, but it snuck up on me, I didn't drink as much as I do now . Unable to quantify how much he drinks Denies any history of treatment when asked about interest in medications, he stated, sure, maybe . He then layed down in his bed, and covered himself up and closed his eyes Review of Systems Constitutional: Reports as per HPI Diagnostics Vital Signs (24Hr): Vital Signs - 24 hr 08/28/23 17:20 08/28/23 21:33 08/28/23 21:59 Temperature 97.9 F 98.4 F 98.2 F Pulse Rate 101 H 85 94 Respiratory Rate 18 20 16 Blood Pressure 203/106 H 185/92 H 173/98 H Pulse Oximetry 97 96 95 Oxygen Delivery Method Room Air Room Air Room Air 08/28/23 22:18 08/28/23 23:12 08/29/23 01:00 Temperature 98.4 F 97.0 F Pulse Rate 89 82 Respiratory Rate 20 18 Blood Pressure 152/95 H 171/96 H 168/85 H Pulse Oximetry 96 95 Oxygen Delivery Method Room Air Room Air 08/29/23 04:00 08/29/23 07:43 08/29/23 09:51 Temperature 97.6 F 97.7 F 98.0 F Pulse Rate 93 90 106 H Respiratory Rate 16 16 18 Blood Pressure 104/54 L 153/74 H 144/72 H Pulse Oximetry 93 93 97 Oxygen Delivery Method Room Air Room Air Room Air 08/29/23 15:32 Temperature 97.7 F Pulse Rate 85 Respiratory Rate 16 Blood Pressure 150/82 H Pulse Oximetry 97 Oxygen Delivery Method Room Air BMI result Body Mass Index 31.4 Labs 08/29/23 08:32 08/29/23 08:32 Labs: Laboratory Results - last 48 hr 08/28/23 08/28/23 08/29/23 17:38 18:08 08:32 WBC 7.8 5.5 RBC 3.21 L 3.32 L Hgb 11.4 L 11.5 L Hct 30.4 L 32.1 L MCV 94.7 96.7 MCH 35.5 H 34.6 H MCHC 37.5 H 35.8 RDW 14.1 14.3 Plt Count 187 169 MPV 9.2 L 9.2 L Immature Gran % (Auto) 0.5 H 0.5 H Neut % (Auto) 82.5 H 76.6 H Lymph % (Auto) 4.[address] [place] % (Auto) 11.1 H 12.9 H Eos % (Auto) 0.5 1.1 Baso % (Auto) 0.9 0.9 Lymph # (Auto) 0.[address] [place] # (Auto) 0.9 0.7 Eos # (Auto) 0.0 0.1 Baso # (Auto) 0.1 0.1 Abs Immat Gran (auto) 0.04 H 0.03 Absolute Neuts (auto) 6.4 4.2 Absolute Nucleated RBC 0.000 0.000 Nucleated RBC % (auto) 0.0 0.0 PT 14.0 H INR 1.2 H Sodium 124 L 129 L Potassium 3.8 3.6 Chloride 86 L 91 L Carbon Dioxide 23 26 Anion Gap 19 16 BUN 5 L 6 L Creatinine 0.80 0.74 Estim Creat Clear Calc 109.7 118.5 Estimated GFR > 60 > 60 Random Glucose 111 122 H Estimat Average Glucose 100 Hemoglobin A1c % 5.1 Osmolality 268 L Calcium 9.5 9.3 Magnesium 1.5 L 2.0 Total Bilirubin 1.2 H AST 134 H ALT 80 H Alkaline Phosphatase 181 H Total Protein 7.8 Albumin 4.4 Urine Color Yellow Urine Appearance Clear Urine pH 6.0 Ur Specific [place] <= 1.005 Urine Protein 30 (1+) H Urine Glucose (UA) Negative Urine Ketones Trace Urine Blood Negative Urine Nitrite Negative Ur Leukocyte Esterase Negative Urine RBC 0-2 Urine WBC 0-5 Ur Squamous Epith Cells 0-2 Urine Bacteria None Seen Hyaline Casts 0-2 Urine Osmolality 143 L Ur Random Sodium < 20.0 Urine Opiates Screen Not Detected Ur Buprenorphine Scrn Not Detected Ur Oxycodone Screen Not Detected Urine Methadone Screen Not Detected Urine Fentanyl Screen Not Detected Ur Barbiturates Screen Not Detected Ur Phencyclidine Scrn Not Detected Ur Amphetamines Screen Not Detected U Benzodiazepines Scrn Not Detected Urine Cocaine Screen Not Detected U Marijuana (THC) Screen Not Detected Ethyl Alcohol < 10 Imaging Radiology Impressions: ITS Impressions Cervical Spine CT 08/28/23 21:20 IMPRESSION: HEAD: No acute intracranial hemorrhage or mass effect. Mild diffuse atrophy and chronic microvascular ischemic disease. CERVICAL SPINE: No acute fracture or subluxation. Multilevel degenerative disc disease and bilateral facet arthropathy with bilateral neural foraminal stenosis, most prominent at C5-C6. Chest CT 08/28/23 21:20 IMPRESSION: 1. Age indeterminant compression deformity superior endplate of T11. Multiple, healed right-sided rib fractures. Chronic, unfused mid right clavicular fracture. 2. Right upper lobe 0.2 cm pulmonary nodule. According to the UPDATED 2017 Fleischner Society recommendations, the advised follow-up imaging for nodules <6mm in the upper lobes is not necessarily required in low-risk patients. In high-risk patients with a nodule in the upper lobe and/or demonstrating suspicious morphology, an optional CT follow-up at 12 months may be obtained. If stable at 12 months, no further follow-up is recommended. 3. Hepatic steatosis. 4. Partially visualized right adrenal nodule measuring up to 2.1 cm. 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 Fleischner guidelines were followed. Head CT 08/28/23 21:20 IMPRESSION: HEAD: No acute intracranial hemorrhage or mass effect. Mild diffuse atrophy and chronic microvascular ischemic disease. CERVICAL SPINE: No acute fracture or subluxation. Multilevel degenerative disc disease and bilateral facet arthropathy with bilateral neural foraminal stenosis, most prominent at C5-C6. Mental Status Exam Mental Status Exam Level of Consciousness: Awake Patient Behavior: Guarded Affect Description: Withdrawn and Flat Medications Medications Current Medications Acetaminophen (Acetaminophen 325 Mg Tablet) 650 mg PO Q6H PRN PRN Reason: Pain, Mild (Pain Scale 1-3), fever or headache Amlodipine Besylate (Amlodipine Besylate 5 Mg Tablet) 5 mg PO DAILY [facility]; Protocol Last Admin: 08/29/23 09:55 Dose: 5 mg Aspirin (Aspirin Enteric Coated 81 Mg Tablet.Dr) 81 mg PO DAILY [facility] Calcium Carbonate (Calcium Carbonate 750 Mg Tab.Chew) 750 mg PO Q4H PRN PRN Reason: Heartburn Enoxaparin Sodium (Enoxaparin Sodium 40 Mg/0.4 Ml Syringe) 40 mg SUBCUT Q24H [facility] Last Admin: 08/28/23 22:38 Dose: 40 mg Folic Acid (Folic Acid 1 Mg Tablet) 1 mg PO DAILY [facility] Last Admin: 08/29/23 09:55 Dose: 1 mg Furosemide (Furosemide 20 Mg Tablet) 20 mg PO DAILY [facility]; Protocol Magnesium Hydroxide (Milk Of Magnesia 30 Ml Oral.Susp) 30 ml PO DAILY PRN PRN Reason: Constipation Magnesium Oxide (Magnesium Oxide 400 Mg Tablet) 400 mg PO BIDPC [facility] Last Admin: 08/29/23 09:55 Dose: 400 mg Melatonin (Melatonin 3 Mg Tablet) 6 mg PO BEDTIME PRN PRN Reason: Insomnia Multivitamins/Vitamin C (Multivitamin Tablet) 1 tab PO DAILY [facility] Last Admin: 08/29/23 09:55 Dose: 1 tab Ondansetron HCl (Ondansetron Hcl 4 Mg/2 Ml Vial) 4 mg IVPUSH Q8H PRN PRN Reason: Nausea and Vomiting Pharmacy Consult (Consult Rx Etoh Phenob Im/Po) 1 each MISCELLANE ONCE PRN; Protocol PRN Reason: Consult order Phenobarbital (Phenobarbital 15 Mg Tablet) 45 mg PO BID [facility] Stop: 08/31/23 21:01 Phenobarbital (Phenobarbital 15 Mg Tablet) 15 mg PO BID [facility] Stop: 09/02/23 21:01 Phenobarbital (Phenobarbital 15 Mg Tablet) 15 mg PO DAILY [facility] Stop: 09/04/23 09:01 Pravastatin Sodium (Pravastatin Sodium 20 Mg Tablet) 20 mg PO BEDTIME [facility] Sodium Chloride (0.9 % Sodium Chloride Flush 3 Ml Syringe) 3 ml IVFLUSH QSHIFT [facility] Last Admin: 08/29/23 09:55 Dose: Not Given Thiamine HCl (Thiamine Hcl 100 Mg Tablet) 100 mg PO DAILY [facility] Last Admin: 08/29/23 09:55 Dose: 100 mg Allergies Allergies Allergy/AdvReac Type Severity Reaction Status Date / Time No Known Allergies Allergy Verified 08/28/23 17:22 [No Known Allergies*] Assessment & Plan Assessment & Plan (1) Alcohol use disorder, severe, dependence: Status: Acute Code(s): F10.20 - Alcohol dependence, uncomplicated Assessment and Plan: open to possible medications to address drinking --not interested in ay type of treatment program also requesting to leave hospital --politely asked this check writer salesperson to let him sleep follow up Thursday AM, if patient still admitted Total time managing care of this patient today ____ minutes. PMFSH Past Medical History Medical History Alcohol use disorder HTN (hypertension) Social History Social History Household Members: Spouse Housing: Apartment Do you presently have visiting nurse or other home services: No Alcohol intake: current Alcohol intake frequency: 3 or more drinks per day Comment: 1:1 sitter Patient Tobacco Use Status: Current everyday Tobacco user Tobacco use type: Cigarette Cigarette Packs Per Day: 2 Cigarettes Per Day: 40.0 Second Hand Smoke Exposure: Yes service: No
[2023-08-29] MEDS: LORazepam 1 MG TABLET PO (19:02)
[2023-08-29] MEDS: Melatonin 3 MG TABLET 6 MG PO (19:02)
[2023-08-29] MEDS: Pravastatin Sodium 20 MG TABLET PO (19:02)
[2023-08-29 19:21] VITALS: BP 104/72; PULSE 100; RESP 20; TEMP 36.3; O2SAT 98
[2023-08-29] MEDS: Enoxaparin Sodium 40 MG/0.4 ML SYRINGE SUBCUT (21:48)
[2023-08-29] MEDS: Zolpidem Tartrate 5 MG TABLET PO (22:22)
[2023-08-30 04:00] VITALS: BP 109/68; PULSE 98; RESP 20; TEMP 36.1; O2SAT 97
[2023-08-30 08:00] VITALS: BP 140/64; PULSE 84; RESP 18; TEMP 36.7; O2SAT 93
[2023-08-30] MEDS: Folic Acid 1 MG TABLET PO (08:41)
[2023-08-30] MEDS: amLODIPine Besylate 5 MG TABLET PO (08:42)
[2023-08-30] MEDS: Furosemide 20 MG TABLET PO (08:42)
[2023-08-30] MEDS: Thiamine HCL 100 MG TABLET PO (08:42)
[2023-08-30] MEDS: Aspirin Enteric Coated 81 MG TABLET.DR PO (08:42)
[2023-08-30] MEDS: Magnesium Oxide 400 MG TABLET PO ×2 (08:42→17:41)
[2023-08-30] MEDS: Multivitamin TABLET 1 TAB PO (08:42)
[2023-08-30] MEDS: 0.9 % Sodium Chloride Flush 3 ML SYRINGE IVFLUSH ×4 (08:43→21:57)
[2023-08-30] MEDS: PHENobarbitaL 15 MG TABLET 45 MG PO ×2 (08:43→20:12)
--- NOTE | 2023-08-30 11:37 | PC.NURSE ---
1045- 1:1 sitter removed from room. Camera remains in place. Patient re-educated on safety and fall risk interventions. Verbalized understanding. Bed alarm on. Bed in low position. Call tucker within reach. Patient continues to rest comfortably in bed. No signs or symptoms of distress. Respirations even and unlabored.
--- NOTE | 2023-08-30 11:48 | HO.PM.IMPN ---
Subjective Subjective Date of Service: 08/30/23 Interval History: f/u on alcohol withdrawal, hyponateremia had periods of agiation overnight and required sitter but seems calm this morning, cooperative Physical Exam Vital Signs: Vital Signs: Last Vital Signs Temp 98.1 F 08/30/23 08:00 Pulse 84 08/30/23 08:00 Resp 18 08/30/23 08:00 BP 140/64 H 08/30/23 08:00 Pulse Ox 93 08/30/23 08:00 O2 Del Method Room Air 08/30/23 08:00 BMI result Body Mass Index 31.4 General: AO X 3, no acute distress Resp: CTA bilateral CVS: S1,S2,RRR GI: +BS, NT, no distention Skin: No rash Neuro: motor grossly intact Psych: appropriate affect Objective Data Active Medications Acetaminophen (Acetaminophen 325 Mg Tablet) 650 mg PO Q6H PRN PRN Reason: Pain, Mild (Pain Scale 1-3), fever or headache Amlodipine Besylate (Amlodipine Besylate 5 Mg Tablet) 5 mg PO DAILY [facility]; Protocol Last Admin: 08/30/23 08:42 Dose: 5 mg Documented By: MARIO Aspirin (Aspirin Enteric Coated 81 Mg Tablet.Dr) 81 mg PO DAILY [facility] Last Admin: 08/30/23 08:42 Dose: 81 mg Documented By: MARIO Calcium Carbonate (Calcium Carbonate 750 Mg Tab.Chew) 750 mg PO Q4H PRN PRN Reason: Heartburn Enoxaparin Sodium (Enoxaparin Sodium 40 Mg/0.4 Ml Syringe) 40 mg SUBCUT Q24H [facility] Last Admin: 08/29/23 21:48 Dose: 40 mg Documented By: ROSE Folic Acid (Folic Acid 1 Mg Tablet) 1 mg PO DAILY [facility] Last Admin: 08/30/23 08:41 Dose: 1 mg Documented By: MARIO Furosemide (Furosemide 20 Mg Tablet) 20 mg PO DAILY [facility]; Protocol Last Admin: 08/30/23 08:42 Dose: 20 mg Documented By: MARIO Magnesium Hydroxide (Milk Of Magnesia 30 Ml Oral.Susp) 30 ml PO DAILY PRN PRN Reason: Constipation Magnesium Oxide (Magnesium Oxide 400 Mg Tablet) 400 mg PO BIDPC [facility] Last Admin: 08/30/23 08:42 Dose: 400 mg Documented By: MARIO Melatonin (Melatonin 3 Mg Tablet) 6 mg PO BEDTIME PRN PRN Reason: Insomnia Last Admin: 08/29/23 19:02 Dose: 6 mg Documented By: ROSE Multivitamins/Vitamin C (Multivitamin Tablet) 1 tab PO DAILY [facility] Last Admin: 08/30/23 08:42 Dose: 1 tab Documented By: MARIO Ondansetron HCl (Ondansetron Hcl 4 Mg/2 Ml Vial) 4 mg IVPUSH Q8H PRN PRN Reason: Nausea and Vomiting Pharmacy Consult (Consult Rx Etoh Phenob Im/Po) 1 each MISCELLANE ONCE PRN; Protocol PRN Reason: Consult order Phenobarbital (Phenobarbital 15 Mg Tablet) 45 mg PO BID [facility] Stop: 08/31/23 21:01 Last Admin: 08/30/23 08:43 Dose: 45 mg Documented By: MARIO Phenobarbital (Phenobarbital 15 Mg Tablet) 15 mg PO BID [facility] Stop: 09/02/23 21:01 Phenobarbital (Phenobarbital 15 Mg Tablet) 15 mg PO DAILY [facility] Stop: 09/04/23 09:01 Pravastatin Sodium (Pravastatin Sodium 20 Mg Tablet) 20 mg PO BEDTIME [facility] Last Admin: 08/29/23 19:02 Dose: 20 mg Documented By: ROSE Sodium Chloride (0.9 % Sodium Chloride Flush 3 Ml Syringe) [facility] Last Admin: 08/30/23 08:43 Dose: 3 ml Documented By: MARIO Thiamine HCl (Thiamine Hcl 100 Mg Tablet) 100 mg PO DAILY [facility] Last Admin: 08/30/23 08:42 Dose: 100 mg Documented By: MARIO Zolpidem Tartrate (Zolpidem Tartrate 5 Mg Tablet) 5 mg PO BEDTIME PRN PRN Reason: Insomnia Last Admin: 08/29/23 22:22 Dose: 5 mg Documented By: ROSE Labs 08/29/23 08:32 08/29/23 08:32 Assessment and Plan (1) Elevated liver enzymes: Status: Acute (2) Alcohol withdrawal: Status: Acute (3) Hypomagnesemia: Status: Acute (4) Acute hyponatremia: Status: Acute Plan 62-year-old male with pertinent history of hypertension, alcohol use disorder who presents to the emergency department of alcohol withdrawal. Alcohol withdrawal with very high risk for DTs -continue Phenobarb protocol initiated in the ER -thiamine, folic acid and multivitamin replacement -Addiction med saw him and not interested in resources Acute on chronic hypotonic hyponatremia: Likely beer potomania interestingly sodium went from 130 prior day to 124, repeat lab -water restriction and follow level closely Hypertensive urgency due to medication noncompliance, BP is better. In the past has been on Norvasc, Lisinopril, HCTZ and metoprolol and Lasix, -restarted Norvasc and adjust as needed Hypomagnesemia due to alcoholism: Repleted and correct, add oral supplement, recheck Elevated liver enzymes due to alcohol use disorder: Outpatient follow-up DVT prophylaxis: Lovenox Full code need for inpatient: management of active alcohol withdrawal, high risk for DTs, mangement of acute hyponatremia PT order as appear unsteady Quality Stroke Does the patient have a stroke diagnosis?: No VTE Prior VTE?: No VTE Risk Level:: Medical - moderate - high VTE Device Contraindication: Treatment Not Indicated VTE Drug Contraindication: N/A - Med Ordered
[2023-08-30 12:29] LABS: Anion Gap 16 (12-20); Blood Urea Nitrogen 9 mg/dL (9-16); Calcium 9.7 mg/dL (8.4-10.2); Carbon Dioxide 25 mmol/L (22-29); Chloride 94 mmol/L (96-108); Creatinine Clr Calc Pharmacy 104.4; Estimated Glomerular Filt Rate > 60; Glucose Random 138 mg/dL (60-115); Potassium 3.6 mmol/L (3.3-5.1); Sodium 131 mmol/L (135-145)
[2023-08-30 15:24] VITALS: BP 111/78; PULSE 108; RESP 18; TEMP 36.4; O2SAT 95
[2023-08-30 19:15] VITALS: BP 150/71; PULSE 100; RESP 17; TEMP 36.4; O2SAT 95
[2023-08-30] MEDS: Pravastatin Sodium 20 MG TABLET PO (20:12)
[2023-08-30] MEDS: Enoxaparin Sodium 40 MG/0.4 ML SYRINGE SUBCUT (21:56)
[2023-08-31 04:00] VITALS: BP 164/80; PULSE 93; RESP 18; TEMP 36; O2SAT 94
[2023-08-31 07:43] VITALS: BP 159/79; PULSE 63; RESP 18; TEMP 36.4; O2SAT 97
[2023-08-31] MEDS: amLODIPine Besylate 5 MG TABLET PO ×2 (08:04→10:10)
[2023-08-31] MEDS: Folic Acid 1 MG TABLET PO (08:04)
[2023-08-31] MEDS: Aspirin Enteric Coated 81 MG TABLET.DR PO (08:04)
[2023-08-31] MEDS: Thiamine HCL 100 MG TABLET PO (08:04)
[2023-08-31] MEDS: Furosemide 20 MG TABLET PO (08:04)
[2023-08-31] MEDS: Multivitamin TABLET 1 TAB PO (08:04)
[2023-08-31] MEDS: Magnesium Oxide 400 MG TABLET PO ×2 (08:04→17:29)
[2023-08-31] MEDS: PHENobarbitaL 15 MG TABLET 45 MG PO ×2 (08:05→20:18)
[2023-08-31 08:19] VITALS: BP 129/76; PULSE 93; O2SAT 99
--- NOTE | 2023-08-31 09:35 | P.DS_ITS ---
DS: Providers Provider Date of Service: 09/01/23 Date of admission: 08/28/23 22:17 Primary care physician: Didi Blackmon MD Consults: 08/28/23 22:16 Addiction Medicine Routine Consulting Provider: Addiction Covering Reason for consultation: alcohol use disorder 08/29/23 01:22 Consult to Wound Care Routine Reason for consultation: redness to rectal area,groin and inner thiighs lower legs abrasions/redness Has provider been notified: No DS: Diagnosis Discharge Diagnosis (1) Elevated liver enzymes: Status: Acute (2) Alcohol withdrawal: Status: Acute (3) Hypomagnesemia: Status: Acute (4) Acute hyponatremia: Status: Acute DS: Summary Hospital Course Hospital Course: admission hpi Chief Complaint: Alcohol withdrawal This is a 62-year-old male with pertinent history of hypertension, alcohol use disorder who presents to the emergency department of alcohol withdrawal. Patient drinks more than 30 beers a day and his last drink was 21:00 yesterday. Patient has been feeling anxious, tremulous and weak since yesterday. No history of alcohol withdrawal seizures. Patient is also states that he fell while ago and broke his collarbone. Patient's who was present earlier told the ER provider that he has been drinking a lot and falling. He denies fever, chills, chest discomfort, palpitations, shortness of breath, abdominal pain, changes in urinary bowel habits. In the emergency department, patient was initiated on phenobarb protocol. Sodium was found to be 124 Hospoital course: Alcohol withdrawal and risk for DTs, patient was treated with phenobarbital, vitamin replacment and hydration. At the present time, he is not experiencing symptoms or sings of withdrawal. He was seen by the addiction and offer resources unfortunately he turned them down. He is strongly advised to avoid or cut down on alcohol consumption and seek help; he acknowledges alcoholism as a problem and open to doing something about it. Acute on chronic hypotonic hyponatremia: Likely related to beer potomania, he was hydrated with IVF and then water restriction, sodium level has stablised around 130 -water restriction and follow level closely Hypomagnesemia--corrected Hypertensive urgency due to medication noncompliance--He presented with extremely high blood pressure, he has not been compliant with medictations for long time, he claims 2 week. He has been restarted on Norvasc 10 mg and Lisinopril 10 (record shows previously 40 mg), lasix 20 mg. decreased metoprolol to 25 mg twice daily from 50 mg twice daily with good blood pressure control. Hypomagnesemia due to alcoholism: Repleted and correct, add oral supplement, recheck Elevated liver enzymes due to alcohol use disorder: Outpatient follow-up [facility] PCP PT recommended short term rehab, I discussed this with patient and his , he has declined this and will take him home Time Attestation Discharge Coordination Time (in mins): 40 Quality: Safe Use of Opioids Does Pt have an Active Cancer Diagnosis on the Problem List?: No Quality: Stroke Does the patient have a stroke diagnosis?: No Physical Exam Vital Signs: Vital Signs: Selected Entries 09/01/23 07:54 09/01/23 11:21 Temperature 97.4 F Pulse Rate 86 Blood Pressure 132/80 Pulse Oximetry 94 General: AO X 3, no acute distress Resp: CTA bilateral CVS: S1,S2,RRR GI: +BS, NT, no distention Skin: No rash Neuro: motor grossly intact Psych: appropriate affect DS: Data Data Completed and Pending Labs on day of discharge: Laboratory Results - last 24 hr 08/30/23 11:57 Sodium 131 L Potassium 3.6 Chloride 94 L Carbon Dioxide 25 Anion Gap 16 BUN 9 Creatinine 0.84 Estim Creat Clear Calc 104.4 Estimated GFR > 60 Random Glucose 138 H Calcium 9.7 Discharge Plan Discharge Anticipated Discharge Date/Time: 09/01/23 11:11 Patient Disposition: Home, Self-Care Discharge Diagnosis: Alcohol withdrawal, Uncontrolled high blood pressure Referrals: Didi Blackmon MD [Primary Care Provider] - 1 Week Discharge Medications: New lisinopril 10 mg Tablet 10 mg PO DAILY Qty: 30 0RF Protocol: Hold for SBP< HOLD for SBP < : 90 metoprolol tartrate 25 mg Tablet 25 mg PO BID Qty: 180 0RF Protocol: Hold for SBP/HR < HOLD for SBP < : 90 HOLD for HR < : 60 Continued aspirin 81 mg tablet,delayed release (DR/EC) 81 mg PO DAILY metformin 1,000 mg tablet 1,000 mg PO BID pravastatin 20 mg tablet 20 mg PO BEDTIME furosemide 20 mg tablet 20 mg PO DAILY amlodipine 10 mg tablet 10 mg PO DAILY Qty: 30 0RF Discontinued clonidine HCl 0.1 mg tablet 0.1 mg PO DAILY metoprolol tartrate 50 mg tablet 50 mg PO BID lisinopril 40 mg tablet 40 mg PO DAILY Discharge Orders: Discharge Order (Routine); Ordered 08/31/23 Ordered By: Noé Armas Diet: Advance to usual diet Activity on Discharge: As tolerated Stand Alone Forms: Patient Portal Discharge page Print Language: Latvian Care Plan Goals: recovery from alcohol withdrawal, abstinence from alcohol use and prevent c omplications related to chronic alcohol consumption. Health Concerns: Chronic alcohol use disorder hyponatremia (low sodium ) uncontrolled hypertension ( blood pressure) noncompliant with medications Plan of Treatment: stop using alcohol followed through the resources provided to you follow-up with your doctor in a week, call for appointment take your blood pressure medications as directed and follow-up with your primary care doctor for further adjustment. -Lisinopril 40 mg daily changed to 10 mg daily -stop clonidine -Metoprolol 50 mg twice daily changed to 25 mg twice daily -continue Lasix as before -continue Norvasc as before -check your sugars before meals Assessment: see above
[2023-08-31 10:07] VITALS: BP 129/76; PULSE 93; RESP 16; TEMP 36.4; O2SAT 99
[2023-08-31 10:09] LABS: Alanine Aminotransferase 52 U/L (0-40); Albumin Level 3.7 g/dL (3.5-5.0); Alkaline Phosphatase 156 U/L (39-117); Aspartate Amino Transferase 87 U/L (5-37); Bilirubin Direct 0.4 mg/dL (0.0-0.5); Magnesium 1.7 mg/dL (1.6-2.6)
[2023-08-31] MEDS: lisinopriL 10 MG TABLET PO (10:10)
[2023-08-31 15:16] VITALS: BP 132/67; PULSE 108; RESP 18; TEMP 36.5; O2SAT 98
--- NOTE | 2023-08-31 15:56 | MHC.CM.PN ---
pt going home self care
[2023-08-31] MEDS: 0.9 % Sodium Chloride Flush 3 ML SYRINGE IVFLUSH ×2 (17:29→23:37)
[2023-08-31 19:01] VITALS: BP 132/77; PULSE 92; RESP 18; TEMP 36.8; O2SAT 97
[2023-08-31] MEDS: Pravastatin Sodium 20 MG TABLET PO (20:18)
[2023-08-31] MEDS: Enoxaparin Sodium 40 MG/0.4 ML SYRINGE SUBCUT (22:35)
[2023-09-01 03:28] VITALS: BP 143/82; PULSE 66; RESP 18; TEMP 36.1; O2SAT 97
[2023-09-01 07:54] VITALS: BP 134/74; PULSE 81; RESP 16; TEMP 36.3; O2SAT 94
[2023-09-01 08:07] VITALS: BP 134/74; PULSE 81; O2SAT 94
[2023-09-01] MEDS: amLODIPine Besylate 10 MG TABLET PO (08:21)
[2023-09-01] MEDS: lisinopriL 10 MG TABLET PO (08:21)
[2023-09-01] MEDS: Thiamine HCL 100 MG TABLET PO (08:21)
[2023-09-01] MEDS: Furosemide 20 MG TABLET PO (08:21)
[2023-09-01] MEDS: Multivitamin TABLET 1 TAB PO (08:21)
[2023-09-01] MEDS: Folic Acid 1 MG TABLET PO (08:21)
[2023-09-01] MEDS: PHENobarbitaL 15 MG TABLET PO (08:21)
[2023-09-01] MEDS: Aspirin Enteric Coated 81 MG TABLET.DR PO (08:21)
[2023-09-01] MEDS: Magnesium Oxide 400 MG TABLET PO (08:22)
[2023-09-01] MEDS: 0.9 % Sodium Chloride Flush 3 ML SYRINGE IVFLUSH (08:22)
--- NOTE | 2023-09-01 09:43 | P.PNIM_ITS ---
Subjective Subjective Date of Service: 08/31/23 Interval History: f/u on alcohol withdrawal, hyponateremia No sings of withdrawal, no agitation Physical Exam 2 Vital Signs: Vital Signs: Selected Entries 08/31/23 15:16 Temperature 97.7 F Pulse Rate 108 H Respiratory Rate 18 Blood Pressure 132/67 Pulse Oximetry 98 Oxygen Delivery Me thod Room Air Last Vital Signs Objective Data Active Medications Acetaminophen (Acetaminophen 325 Mg Tablet) 650 mg PO Q6H PRN PRN Reason: Pain, Mild (Pain Scale 1-3), fever or headache Amlodipine Besylate (Amlodipine Besylate 10 Mg Tablet) 10 mg PO DAILY [facility]; Protocol Last Admin: 09/01/23 08:21 Dose: 10 mg Documented By: SILVANO Aspirin (Aspirin Enteric Coated 81 Mg Tablet.) 81 mg PO DAILY [facility] Last Admin: 09/01/23 08:21 Dose: 81 mg Documented By: SILVANO Calcium Carbonate (Calcium Carbonate 750 Mg Tab.Chew) 750 mg PO Q4H PRN PRN Reason: Heartburn Enoxaparin Sodium (Enoxaparin Sodium 40 Mg/0.4 Ml Syringe) 40 mg SUBCUT Q24H [facility] Last Admin: 08/31/23 22:35 Dose: 40 mg Documented By: DANIELLE Folic Acid (Folic Acid 1 Mg Tablet) 1 mg PO DAILY [facility] Last Admin: 09/01/23 08:21 Dose: 1 mg Documented By: SILVANO Furosemide (Furosemide 20 Mg Tablet) 20 mg PO DAILY [facility]; Protocol Last Admin: 09/01/23 08:21 Dose: 20 mg Documented By: SILVANO Lisinopril (Lisinopril 10 Mg Tablet) 10 mg PO DAILY [facility]; Protocol Last Admin: 09/01/23 08:21 Dose: 10 mg Documented By: SILVANO Magnesium Hydroxide (Milk Of Magnesia 30 Ml Oral.Susp) 30 ml PO DAILY PRN PRN Reason: Constipation Magnesium Oxide (Magnesium Oxide 400 Mg Tablet) 400 mg PO BIDPC [facility] Last Admin: 09/01/23 08:22 Dose: 400 mg Documented By: SILVANO Melatonin (Melatonin 3 Mg Tablet) 6 mg PO BEDTIME PRN PRN Reason: Insomnia Last Admin: 08/29/23 19:02 Dose: 6 mg Documented By: ROSE Multivitamins/Vitamin C (Multivitamin Tablet) 1 tab PO DAILY [facility] Last Admin: 09/01/23 08:21 Dose: 1 tab Documented By: SILVANO Ondansetron HCl (Ondansetron Hcl 4 Mg/2 Ml Vial) 4 mg IVPUSH Q8H PRN PRN Reason: Nausea and Vomiting Pharmacy Consult (Consult Rx Etoh Phenob Im/Po) 1 each MISCELLANE ONCE PRN; Protocol PRN Reason: Consult order Phenobarbital (Phenobarbital 15 Mg Tablet) 15 mg PO BID [facility] Stop: 09/02/23 21:01 Last Admin: 09/01/23 08:21 Dose: 15 mg Documented By: SILVANO Phenobarbital (Phenobarbital 15 Mg Tablet) 15 mg PO DAILY [facility] Stop: 09/04/23 09:01 Pravastatin Sodium (Pravastatin Sodium 20 Mg Tablet) 20 mg PO BEDTIME [facility] Last Admin: 08/31/23 20:18 Dose: 20 mg Documented By: DANIELLE Sodium Chloride (0.9 % Sodium Chloride Flush 3 Ml Syringe) 3 ml IVFLUSH QSHIFT [facility] Last Admin: 09/01/23 08:22 Dose: 3 ml Documented By: SILVANO Thiamine HCl (Thiamine Hcl 100 Mg Tablet) 100 mg PO DAILY [facility] Last Admin: 09/01/23 08:21 Dose: 100 mg Documented By: SILVANO Zolpidem Tartrate (Zolpidem Tartrate 5 Mg Tablet) 5 mg PO BEDTIME PRN PRN Reason: Insomnia Last Admin: 08/29/23 22:22 Dose: 5 mg Documented By: LUISQC Labs 08/29/23 08:32 08/30/23 11:57 Labs: Laboratory Results - last 24 hr 08/30/23 11:57 Magnesium 1.7 Total Bilirubin 1.0 Direct Bilirubin 0.4 AST 87 H ALT 52 H Alkaline Phosphatase 156 H Total Protein 7.0 Albumin 3.7 Assessment and Plan (1) Elevated liver enzymes: Status: Acute (2) Alcohol withdrawal: Status: Acute (3) Hypomagnesemia: Status: Acute (4) Acute hyponatremia: Status: Acute Plan 62-year-old male with pertinent history of hypertension, alcohol use disorder who presents to the emergency department of alcohol withdrawal. Alcohol withdrawal with very high risk for DTs -continue Phenobarb protocol initiated in the ER -thiamine, folic acid and multivitamin replacement -Addiction med saw him and not interested in resources Acute on chronic hypotonic hyponatremia: Likely beer potomania interestingly sodium went from 130 prior day to 124, stable around 130 Hypertensive urgency due to medication noncompliance, BP is better. In the past has been on Norvasc, Lisinopril, HCTZ and metoprolol and Lasix, -restarted Norvasc increase to 10, add lisinopril 10,.,.Generally has not been compliant with meds Hypomagnesemia due to alcoholism: Repleted and correct, add oral supplement, corrected Elevated liver enzymes due to alcohol use disorder: Outpatient follow-up DVT prophylaxis: Lovenox Full code need for inpatient: management of active alcohol withdrawal, high risk for DTs, mangement of acute hyponatremia PT recommends STR vs home, pt wants to go home, not happy about the idea late entry note for 08/30 Quality Stroke Does the patient have a stroke diagnosis?: No VTE Prior VTE?: No VTE Risk Level:: Medical - moderate - high VTE Device Contraindication: Treatment Not Indicated VTE Drug Contraindication: N/A - Med Ordered
--- NOTE | 2023-09-01 09:53 | P.PNIM_ITS ---
Subjective Subjective Date of Service: 09/01/23 Interval History: f/u on alcohol withdrawal, hyponateremia No sings of withdrawal, no agitation, cooperative, still wants to go home Physical Exam 2 Vital Signs: Vital Signs: Last Vital Signs Temp 97.4 F 09/01/23 07:54 Pulse 81 09/01/23 08:07 Resp 16 09/01/23 07:54 BP 134/74 09/01/23 08:07 Pulse Ox 94 09/01/23 08:07 O2 Del Method Room Air 09/01/23 07:54 BMI result Body Mass Index 31.4 General: AO X 3, no acute distress Resp: CTA bilateral CVS: S1,S2,RRR GI: +BS, NT, no distention Skin: No rash Neuro: motor grossly intact Psych: appropriate affect Objective Data Active Medications Acetaminophen (Acetaminophen 325 Mg Tablet) 650 mg PO Q6H PRN PRN Reason: Pain, Mild (Pain Scale 1-3), fever or headache Amlodipine Besylate (Amlodipine Besylate 10 Mg Tablet) 10 mg PO DAILY [facility]; Protocol Last Admin: 09/01/23 08:21 Dose: 10 mg Documented By: SILVANO Aspirin (Aspirin Enteric Coated 81 Mg Tablet.Dr) 81 mg PO DAILY [facility] Last Admin: 09/01/23 08:21 Dose: 81 mg Documented By: SILVANO Calcium Carbonate (Calcium Carbonate 750 Mg Tab.Chew) 750 mg PO Q4H PRN PRN Reason: Heartburn Enoxaparin Sodium (Enoxaparin Sodium 40 Mg/0.4 Ml Syringe) 40 mg SUBCUT Q24H [facility] Last Admin: 08/31/23 22:35 Dose: 40 mg Documented By: DANIELLE Folic Acid (Folic Acid 1 Mg Tablet) 1 mg PO DAILY [facility] Last Admin: 09/01/23 08:21 Dose: 1 mg Documented By: SILVANO Furosemide (Furosemide 20 Mg Tablet) 20 mg PO DAILY [facility]; Protocol Last Admin: 09/01/23 08:21 Dose: 20 mg Documented By: SILVANO Lisinopril (Lisinopril 10 Mg Tablet) 10 mg PO DAILY [facility]; Protocol Last Admin: 09/01/23 08:21 Dose: 10 mg Documented By: SILVANO Magnesium Hydroxide (Milk Of Magnesia 30 Ml Oral.Susp) 30 ml PO DAILY PRN PRN Reason: Constipation Magnesium Oxide (Magnesium Oxide 400 Mg Tablet) 400 mg PO BIDPC [facility] Last Admin: 09/01/23 08:22 Dose: 400 mg Documented By: SILVANO Melatonin (Melatonin 3 Mg Tablet) 6 mg PO BEDTIME PRN PRN Reason: Insomnia Last Admin: 08/29/23 19:02 Dose: 6 mg Documented By: ROSE Multivitamins/Vitamin C (Multivitamin Tablet) 1 tab PO DAILY [facility] Last Admin: 09/01/23 08:21 Dose: 1 tab Documented By: SILVANO Ondansetron HCl (Ondansetron Hcl 4 Mg/2 Ml Vial) 4 mg IVPUSH Q8H PRN PRN Reason: Nausea and Vomiting Pharmacy Consult (Consult Rx Etoh Phenob Im/Po) 1 each MISCELLANE ONCE PRN; Protocol PRN Reason: Consult order Phenobarbital (Phenobarbital 15 Mg Tablet) 15 mg PO BID [facility] Stop: 09/02/23 21:01 Last Admin: 09/01/23 08:21 Dose: 15 mg Documented By: SILVANO Phenobarbital (Phenobarbital 15 Mg Tablet) 15 mg PO DAILY [facility] Stop: 09/04/23 09:01 Pravastatin Sodium (Pravastatin Sodium 20 Mg Tablet) 20 mg PO BEDTIME [facility] Last Admin: 08/31/23 20:18 Dose: 20 mg Documented By: DANIELLE Sodium Chloride (0.9 % Sodium Chloride Flush 3 Ml Syringe) [facility] Last Admin: 09/01/23 08:22 Dose: 3 ml Documented By: SILVANO Thiamine HCl (Thiamine Hcl 100 Mg Tablet) 100 mg PO DAILY [facility] Last Admin: 09/01/23 08:21 Dose: 100 mg Documented By: SILVANO Zolpidem Tartrate (Zolpidem Tartrate 5 Mg Tablet) 5 mg PO BEDTIME PRN PRN Reason: Insomnia Last Admin: 08/29/23 22:22 Dose: 5 mg Documented By: ROSE Labs 08/29/23 08:32 08/30/23 11:57 Labs: Laboratory Results - last 24 hr 08/30/23 11:57 Magnesium 1.7 Total Bilirubin 1.0 Direct Bilirubin 0.4 AST 87 H ALT 52 H Alkaline Phosphatase 156 H Total Protein 7.0 Albumin 3.7 Assessment and Plan (1) Elevated liver enzymes: Status: Acute (2) Alcohol withdrawal: Status: Acute (3) Hypomagnesemia: Status: Acute (4) Acute hyponatremia: Status: Acute Plan 62-year-old male with pertinent history of hypertension, alcohol use disorder who presents to the emergency department of alcohol withdrawal. Alcohol withdrawal with very high risk for DTs, no withdrawal symptoms or sings -continue Phenobarb protocol -thiamine, folic acid and multivitamin replacement -Addiction med saw him and not interested in resources Acute on chronic hypotonic hyponatremia: Likely beer potomania interestingly sodium went from 130 prior day to 124, stable around 130 Hypertensive urgency due to medication noncompliance, BP is better. In the past has been on Norvasc, Lisinopril, HCTZ, clonidineand metoprolol and Lasix--he claims to stop taking them 2 weeks ago, but probably longer BP is presently well controlled on Norvasc 10, and lisinopril 10. Hold other meds for now Hypomagnesemia due to alcoholism: Repleted and correct, add oral supplement, corrected last level 1.7 Elevated liver enzymes due to alcohol use disorder: Outpatient follow-up DVT prophylaxis: Lovenox Full code need for inpatient: management of active alcohol withdrawal, high risk for DTs, mangement of acute hyponatremia PT recommends STR vs home, pt wants to go home, not happy about the idea, will discuss onptions with patient, and case managment Quality Stroke Does the patient have a stroke diagnosis?: No VTE Prior VTE?: No VTE Risk Level:: Medical - moderate - high VTE Device Contraindication: Treatment Not Indicated VTE Drug Contraindication: N/A - Med Ordered
--- NOTE | 2023-09-01 10:39 | MHC.RECOVRN ---
Briefly met with pt and , Keny, in [place] to provide resources. Pt irritable and reports he does not have a problem with alcohol. Pts accepting of resources. Both deny questions or concerns at this time. Also provided with t/w contact information if needed.
--- NOTE | 2023-09-01 11:16 | MHC.CM.PN ---
DP: PT HAS BEEN MEDICALLY CLEARED FOR DC HOME. CM UNABLE TO SECURE A VNA CONTRACTED WITH PT INSURANCE/NO AVAILABILITY. MD AWARE. AND PT AWARE THAT IF NO VNA IS SECURED , PT WILL GO TO OP REHAB IF DESIRED. [facility] WILL TRANSPORT.
[2023-09-01 11:21] VITALS: BP 132/80; PULSE 86
[2023-09-01] MEDS: Metoprolol Tartrate 25 MG TABLET PO (11:21)
== END 2023-09-01 11:42 | disposition home or self-care (01) | DRG 775 ==
LOC: HO.ED 20:59 → HO.EDOVER 22:21 → HO.S3 23:24
PROVIDERS: Nurse Practitioner Family; Admitting Provider Student in an Organized Health Care Education/Training Program; Emergency Provider Emergency Medicine; PCP Student in an Organized Health Care Education/Training Program; Visit Provider Internal Medicine
DX: F10.239 Alcohol dependence with withdrawal, unspecified (principal); E87.1 Hypo-osmolality and hyponatremia; E83.42 Hypomagnesemia; I10 Essential (primary) hypertension; I16.0 Hypertensive urgency; F17.210 Nicotine dependence, cigarettes, uncomplicated; Z91.148 Patient's other noncompliance with medication regimen for other reason; Z71.6 Tobacco abuse counseling; Z79.82 Long term (current) use of aspirin; Z79.84 Long term (current) use of oral hypoglycemic drugs; Z79.899 Other long term (current) drug therapy
CPT/HCPCS: 36415; 70450; 71250; 72125; 80048; 80053; 80076; 80307; 81001; 83036; 83735; 83930; 83935; 84300; 85025; 85610; 93005; 97116; 97161; 99285; J1650; J2060; J2560; J3411; J3475

== ENCOUNTER → 2023-08-28 17:23 | Outpatient (BNV) | payer OTHER, SELFPAY | PROVIDERS: Admitting Provider Student in an Organized Health Care Education/Training Program; Emergency Provider Emergency Medicine; PCP Student in an Organized Health Care Education/Training Program; Visit Provider Internal Medicine Cardiovascular Disease | DX: R94.31 Abnormal electrocardiogram [ECG] [EKG] (principal) | CPT/HCPCS: 93010 ==

== ENCOUNTER → 2023-08-28 22:17 | Outpatient (BNV) | payer OTHER, SELFPAY | PROVIDERS: Admitting Provider Student in an Organized Health Care Education/Training Program; Emergency Provider Emergency Medicine; PCP Student in an Organized Health Care Education/Training Program; Visit Provider Student in an Organized Health Care Education/Training Program | DX: R74.8 Abnormal levels of other serum enzymes (principal); F10.939 Alcohol use, unspecified with withdrawal, unspecified; E83.42 Hypomagnesemia; E87.1 Hypo-osmolality and hyponatremia | CPT/HCPCS: 99223; 99232; 99233 ==

== ENCOUNTER → 2023-08-28 22:17 | Outpatient (BNV) | payer OTHER, SELFPAY | PROVIDERS: Admitting Provider Student in an Organized Health Care Education/Training Program; Emergency Provider Emergency Medicine; PCP Student in an Organized Health Care Education/Training Program; Visit Provider Nurse Practitioner Psychiatric/Mental Health | DX: F10.20 Alcohol dependence, uncomplicated (principal) | CPT/HCPCS: 99221 ==